=== PATIENT | female | born 1940 | race Caucasian/White ===

== ENCOUNTER 2021-02-16 09:14 | Outpatient (CLI) | payer MEDICARE, SELFPAY ==
--- NOTE | 2021-02-16 | CT_ITS ---
WS: [id number] CT CHEST TECHNIQUE: Contrast enhanced CT of the chest with coronal and sagittal reformatted images. CLINICAL INFORMATION: SHORTNESS OF BREATH COMPARISON: CTA chest 9 15,018 DLP: 973.[address] scans at [facility] use at least one of these dose optimization techniques: automat ed exposure control; mA and/or kV adjustment per patient size (includes targeted exams where dose is matched to clinical indication); or iterative reconstruction. FINDINGS: Moderate chronic emphysematous changes. No acute pulmonary infiltrates. No consolidation or pleural f luid. No focal pneumonia. Calcified granuloma right lower lobe. Noncalcified nodule right lower lobe laterally measuring 4 mm. Normal caliber thoracic aorta. Aortic calcification. Proximal main pulmonar y arteries are normal. No mediastinal or hilar lymphadenopathy. No axillary lymphadenopathy. Adrenal glands are normal. Large esophageal hiatal hernia with partial intrathoracic stomach is simil ar in appearance to 2018. CT/CT chest w con* [id number] IMPRESSION: 1. Small noncalcified nodule right lower lobe laterally measuring 4 mm. Recomm end 12 month follow-up. 2. Moderate chronic emphysematous changes. No acute pulmonary infiltrates. No focal pneumonia or pleural fluid. 3. Large esophageal hiatal hernia with partial intrathoracic stomach similar t o 2018. 4. No mediastinal or hilar lymphadenopathy.
[2021-02-16] MEDS: iohexol 300 mg/mL 100 mL Btl IV (09:55)
== END 2021-02-16 09:15 | disposition home or self-care (01) ==
PROVIDERS: PCP Internal Medicine; Visit Provider Internal Medicine
DX: R06.02 Shortness of breath (principal); R91.1 Solitary pulmonary nodule; K44.9 Diaphragmatic hernia without obstruction or gangrene
CPT/HCPCS: 71260; Q9967

== ENCOUNTER → 2021-03-10 09:29 | Outpatient (BNVA) | payer MEDICARE, SELFPAY | PROVIDERS: PCP Internal Medicine; Visit Provider Internal Medicine | DX: R13.10 Dysphagia, unspecified (principal) | CPT/HCPCS: 87635 ==

== ENCOUNTER 2021-03-15 07:47 | Outpatient (CLI) | payer MEDICARE, SELFPAY ==
--- NOTE | 2021-03-15 14:11 | PFTS_ITS ---
Date of Study:03/15/21 Date of Dictation: 03/18/2021 MECHANICS: Post bronchodilator forced vital capacity (FVC) is reduced. Post bronchodilator forced expiratory volume in one second (FEV1) is moderately reduced 51% FEV1/FVC is reduced. There is no significant response to bronchodilator. FLOW VOLUME LOOP: Sloping of expiratory limb suggestive of airway obstruction. . LUNG VOLUMES: Total lung capacity (TLC) is reduced 70%. Residual volume (RV) is mildly reduced 75% DIFFUSING CAPACITY FOR CARBON MONOXIDE: Mildly reduced 70% . INTERPRETATION: The pulmonary function tests reflect mixed pattern with moderate obstructive pattern on spirometry and a mild restriction on lung volumes. The flow volume loop reflects the same mixed pattern. There is mild gas transfer defect. Correlate clinically. MTDD
== END 2021-03-15 07:48 | disposition home or self-care (01) ==
LOC: RT 07:51
PROVIDERS: PCP Internal Medicine; Visit Provider Internal Medicine
DX: J44.9 Chronic obstructive pulmonary disease, unspecified (principal)
CPT/HCPCS: 94060; 94618; 94726; 94729; J7611

== ENCOUNTER 2021-03-17 08:38 | Day surgery (SDC) | payer MEDICARE, SELFPAY ==
[2021-03-15 15:11] VITALS: BMI 35.3
--- NOTE | 2021-03-17 08:56 | P.ANESASSM_ITS ---
Pre-Anesthetic Assessment Pre-Anesthetic Assessment: Height/Weight: Height 1.5 m Weight 79.379 kg Preop Diagnosis: dysphagia Proposed Procedure: Operation Date: 03/17/21 10:30 Proposed Procedures p EGD Dilation W/ Balloon 95557 R13.10(Not Applicable) - Anjel Walters MD Familial anesthetic complications: None Was Beta [place] taken within 24 hours: N/A Was Clonidine taken within 24 hours: N/A Last intake: NPO > 8 hrs Social: Social History: No alcohol and No tobacco Comment: former smoker Exam: Pre-Anes Outpt Exam: alert, oriented x 3, clear to auscultation bilaterally and regular rate & rhythm Airway: Cervical ROM: WNL MP: 1 Dentition: False Pulmonary: Pulmonary: COPD Comments: now on 2 L NC for a few months CV/HEM: CV/HEM: HTN GI: GI: GERD (occassional) and Hiatus hernia (seen on CT) Comments: Gets food stuck in her esophagus, but states she feels nothing stuck at the moment, no active GERD today Metabolic: Metabolic: Hyperlipidemia Anesthetic Plan: ASA status: 4 Anesthesia: MAC Risk of > 500 ml blood l oss (7ml/kg in children): No PFSH Anesthesia PFSH: Medical History History of breast cancer History of cervical cancer Hyperlipemia Hypertension Surgical History History of colonoscopy [address] Walters History of hysterectomy History of left breast biopsy History of removal of cyst On thyroid. S/P lumpectomy, left breast Family History Denies family history of Anesthesia complication Bleeding disorder Social History (Updated 02/24/21 @ 15:35 by Luiz Meredith LPN) Smoking and tobacco status: former smoker Quit status (tobacco): has quit using tobacco Year quit tobacco: 2000 [id number] Second hand smoke exposure: Yes Smoking risk assessment/counseling performed?: Yes Alcohol intake: current Alcohol intake frequency: holidays/special occasions only Lives independently: Yes Household members: none Housing: House Marital status: / Current occupational status: retired Pets and animals: No History of recent travel: No Current gender identity: Female Data Anesthesia Cardiac Studies: No Data to Display
--- NOTE | 2021-03-17 09:00 | W.PM.OPSUD ---
Surgery/Procedure H&P Update DATE OF PROCEDURE: March 17, 2021 DATE H&P PERFORMED: 02/21/21 H&P UPDATE INFORMATION: I have reviewed H&P completed within last 30 days, I have examined patient prior to procedure and No changes to prior documentation PREOP DIAGNOSIS: dysphagia PLANNED PROCEDURE: Operation Date: 03/17/21 10:30 Proposed Procedures p EGD Dilation W/ Balloon [id number] R13.10(Not Applicable) - Anjel Walters MD
[2021-03-17 09:25] VITALS: BP 146/81; PULSE 77; RESP 18; TEMP 36.3; O2SAT 93
[2021-03-17] MEDS: sodium chloride 0.9% 1,000 ML 30 ML IV (09:48)
[2021-03-17 10:56] VITALS: BP 102/70; PULSE 73; RESP 18; TEMP 36.3; O2SAT 93
[2021-03-17 11:04] VITALS: BP 95/70; PULSE 89; RESP 18; TEMP 36.2; O2SAT 94
--- NOTE | 2021-03-17 11:19 | ANE.PACU2 ---
Inpatient post-anesthesia follow up: Airway intact: Yes Vital signs: Temperature 97.2 F Pulse Rate 89 Respiratory Rate 18 Blood Pressure 95/70 Pulse Oximetry 94 Oxygen Delivery Me thod Room Air Oxygen Flow Rate Fraction of Inspir ed Oxygen Hydration adequate: Yes Mental status: Baseline
== END 2021-03-17 11:28 | disposition home or self-care (01) ==
PROVIDERS: PCP Internal Medicine; Visit Provider Surgery
DX: R13.10 Dysphagia, unspecified (principal); K44.9 Diaphragmatic hernia without obstruction or gangrene; K25.9 Gastric ulcer, unspecified as acute or chronic, without hemorrhage or perforation; K29.80 Duodenitis without bleeding; Z85.3 Personal history of malignant neoplasm of breast; E78.5 Hyperlipidemia, unspecified; I10 Essential (primary) hypertension; Z87.891 Personal history of nicotine dependence
CPT/HCPCS: 43239; 43249; 88305; 96360; J2704; J3490; J7030

== ENCOUNTER 2021-08-04 10:52 | Outpatient (RCR) | payer MEDICARE, SELFPAY | END 2021-08-04 23:59 | disposition home or self-care (01) | LOC: PULRHB 10:52 | PROVIDERS: PCP Internal Medicine; Visit Provider Internal Medicine Pulmonary Disease | DX: J44.9 Chronic obstructive pulmonary disease, unspecified (principal) | CPT/HCPCS: 94618 ==

== ENCOUNTER 2021-08-05 06:00 | Outpatient (RCR) | payer MEDICARE, SELFPAY | END 2021-09-04 23:59 | disposition home or self-care (01) | LOC: PULRHB 06:00 | PROVIDERS: PCP Internal Medicine; Visit Provider Internal Medicine Pulmonary Disease | DX: J44.9 Chronic obstructive pulmonary disease, unspecified (principal) | CPT/HCPCS: G0424 ==

== ENCOUNTER 2021-09-05 06:00 | Outpatient (RCR) | payer MEDICARE, SELFPAY | END 2021-10-04 23:59 | disposition home or self-care (01) | LOC: PULRHB 06:00 | PROVIDERS: PCP Internal Medicine; Visit Provider Internal Medicine Pulmonary Disease | DX: J44.9 Chronic obstructive pulmonary disease, unspecified (principal) | CPT/HCPCS: G0424 ==

== ENCOUNTER 2021-10-05 06:00 | Outpatient (RCR) | payer MEDICARE, SELFPAY | END 2021-11-04 23:59 | disposition home or self-care (01) | LOC: PULRHB 06:00 | PROVIDERS: PCP Internal Medicine; Visit Provider Internal Medicine Pulmonary Disease | DX: J44.9 Chronic obstructive pulmonary disease, unspecified (principal) | CPT/HCPCS: G0424 ==

== ENCOUNTER 2021-11-05 06:00 | Outpatient (RCR) | payer MEDICARE, SELFPAY | END 2021-12-05 23:59 | disposition home or self-care (01) | LOC: PULRHB 06:00 | PROVIDERS: PCP Internal Medicine; Visit Provider Internal Medicine Pulmonary Disease | DX: J44.9 Chronic obstructive pulmonary disease, unspecified (principal) | CPT/HCPCS: G0424 ==

== ENCOUNTER → 2022-04-26 08:29 | Outpatient (BNVA) | payer MEDICARE, SELFPAY | PROVIDERS: PCP Internal Medicine; Visit Provider Internal Medicine Pulmonary Disease | DX: J44.9 Chronic obstructive pulmonary disease, unspecified (principal); R91.1 Solitary pulmonary nodule; K44.9 Diaphragmatic hernia without obstruction or gangrene; Z87.891 Personal history of nicotine dependence; E78.5 Hyperlipidemia, unspecified; I10 Essential (primary) hypertension | CPT/HCPCS: 99214 ==

== ENCOUNTER 2022-07-05 12:29 | Outpatient (CLI) | payer MEDICARE, SELFPAY ==
--- NOTE | 2022-07-05 13:00 | CT_ITS ---
WS: [id number] CT CHEST WITHOUT INTRAVENOUS CONTRAST HISTORY: f/u lung nodule TECHNIQUE: Contiguous 5 mm axial imaging performed on the thorax. Coronal and sagittal reformats are submitted. All CT scans at [facility] use at least one of these dose optimization techniques: automated exposure control; mA and/or kV adjustment per patient size (includes targeted exams where dose is matched to clinical indication); or iterative reconstruction. CONTRAST: None DLP: 622.10 mGy.cm COMPARISON: 02/16/2021 and 07/20/2018 Lungs and central airway: Hyperexpanded lungs with chronic emphysema. No significant change in the 5 mm ovoid nodule periphery of the RIGHT lower lobe. This is a noncalcified nodule. There is a addition al new area of mild spiculation and groundglass attenuation, image 28 of series 4 which will need fol low-up. There is motion artifact present. Pleura: Normal. No pleural effusion. Heart and pericardium: Normal size heart with no pericardial effusion. Mediastinum and jaclyn: No mediastinum or hilar adenopathy. Vessels: Atherosclerosis aorta. Normal size pulmonary artery. Chest wall and lower neck: Stable coarse calcification LEFT breast. Upper abdomen: Very large hiatal hernia. Nearly the entire stomach is intrathoracic. No interval jaquez ge. Osseous structures: Increase in thoracic kyphosis. CT/CT chest wo con [id number] IMPRESSION: 1. No change in the 5 mm ovoid noncalcified nodule RIGHT lower lobe. 2. New area of mild spiculation groundglass attenuation RIGHT lower lobe. Jermaine mmend month noncontrast CT follow-up to reevaluate both RIGHT lower lobe lesion s. 3. Large hiatal hernia. 4. Mild atherosclerosis aorta. 5. Chronic emphysema.
== END 2022-07-05 12:30 | disposition home or self-care (01) ==
PROVIDERS: PCP Internal Medicine; Visit Provider Internal Medicine Pulmonary Disease
DX: R91.1 Solitary pulmonary nodule (principal); K44.9 Diaphragmatic hernia without obstruction or gangrene; I70.0 Atherosclerosis of aorta; J43.9 Emphysema, unspecified
CPT/HCPCS: 71250

== ENCOUNTER 2022-10-09 11:54 | Outpatient (CLI) | payer MEDICARE, SELFPAY ==
--- NOTE | 2022-10-09 13:00 | CT_ITS ---
WS: [id number] CT CHEST WITHOUT INTRAVENOUS CONTRAST HISTORY: 3 month f/u lung nodule TECHNIQUE: Contiguous 5 mm axial imaging performed on the thorax. Coronal and sagittal reformats are submitted. All CT scans at [facility] use at least one of these dose optimization techniques: automated exposure control; mA and/or kV adjustment per patient size (includes targeted exams where dose is matched to clinical indication); or iterative reconstruction. CONTRAST: None DLP: 606.79 mGy.cm COMPARISON: 07/05/2022 Lungs and central airway: There has been a significant adverse change in appearance of the lungs sinc e the prior study. New, numerous bilateral patchy opacifications. Greatest involvement of the RIGHT l richy. Multifocal irregular shaped opacifications in the medial RIGHT upper lobe with additional dense opacification along the major fissure abutting the RIGHT upper lobe. There are smaller scattered bila teral lower lobe opacifications. No change in the 5 mm ovoid nodule in the RIGHT lower lobe. Focal ar ea of groundglass attenuation in the posterior RIGHT lower lobe is also stable. There is a small nodu le measuring about 5 mm in the LEFT lower lobe that was probably present on the prior study but lucina r seen today. Pleura: Normal. No pleural effusion. Heart and pericardium: Mild cardiomegaly. Mediastinum and jaclyn: No mediastinal widening. Small but numerous mediastinal and hilar lymph nodes. Large esophageal hernia. Greater than 50% of the stomach is in the thorax. Vessels: Atherosclerosis aorta. Chest wall and lower neck: No soft tissue masses. Upper abdomen: Scattered hepatic granulomata. Visualized gallbladder is negative. No adrenal mass. Osseous structures: Increase in thoracic kyphosis. CT/CT chest wo con [id number] IMPRESSION: 1. Numerous, bilateral new pulmonary opacifications and consolidations since . Greater distribution throughout the RIGHT lung. The distribution and configuration suggests this may be inflammatory. Consider aspiration pneumonia as a possible etiology as there is a very large hiatal hernia which could be re sulting in aspiration. 2. No significant change in the 5 mm RIGHT lower lobe nodule or groundglass at tenuation since 07/05/2022. Recommend continued imaging surveillance is these fi ndings are new since 02/16/2021. Continued chest CT follow-up in 3-4 months. 3. Chronic emphysema.
== END 2022-10-09 11:55 | disposition home or self-care (01) ==
LOC: RAD 11:56
PROVIDERS: PCP Internal Medicine; Visit Provider Internal Medicine Pulmonary Disease
DX: R91.1 Solitary pulmonary nodule (principal)
CPT/HCPCS: 71250

== ENCOUNTER → 2022-10-26 09:19 | Outpatient (BNVA) | payer MEDICARE, SELFPAY | PROVIDERS: PCP Internal Medicine; Visit Provider Internal Medicine Pulmonary Disease | DX: R91.1 Solitary pulmonary nodule (principal); J44.9 Chronic obstructive pulmonary disease, unspecified; K44.9 Diaphragmatic hernia without obstruction or gangrene; Z87.891 Personal history of nicotine dependence | CPT/HCPCS: 99214 ==

== ENCOUNTER 2023-02-06 09:14 | Outpatient (CLI) | payer MEDICARE, SELFPAY ==
--- NOTE | 2023-02-06 09:30 | CT_ITS ---
WS: [id number] CT chest wo con [id number] HISTORY: PULMONARY NODULE FOLLOW UP TECHNIQUE: Axial imaging performed through the thorax. Coronal and sagittal reformats are submitted. All CT scans at [facility] use at least one of these dose optimization techniques: automated exposure control; mA and/or kV adjustment per patient size (includes targeted exams where dose is mat ched to clinical indication); or iterative reconstruction. CONTRAST: None DLP: 314.43 mGy.cm COMPARISON: 02/16/2021, 10/09/2022 Lungs and central airway: Chronic centrilobular emphysema. 5 mm noncalcified nodule in the RIGHT midd le lobe is reidentified with no change. Stable since 02/16/2021. There are additional scattered nodule s which are also stable. There are a few scattered areas of groundglass attenuation. No new or enlarg ing nodules. The opacifications which were new on the prior study have improved. There is one groundg lass residual nodules in the RIGHT lower lobe best seen on image 31 of series 4 which is unchanged. Pleura: Normal. No pleural effusion. Heart and pericardium: Normal size heart with no pericardial effusion. Mediastinum and jaclyn: No mediastinum or hilar adenopathy. Large hiatal hernia. Vessels: Moderate atherosclerosis aorta. Normal size pulmonary artery. Chest wall and lower neck: No soft tissue masses. Upper abdomen: Negative. Osseous structures: No destructive process. CT/CT chest wo con [id number] IMPRESSION: 1. Long-term stability RIGHT lower lobe 5 mm pulmonary nodule. Stable since . No additional imaging follow-up necessary due to long-term stability o f 2 years. 2. There are a few additional nodules which are also stable. 3. Improvement in the bilateral opacifications described on 10/09/2022. 4. Large hiatal hernia.
== END 2023-02-06 09:15 | disposition home or self-care (01) ==
PROVIDERS: PCP Internal Medicine; Visit Provider Internal Medicine Pulmonary Disease
DX: R91.1 Solitary pulmonary nodule (principal); K44.9 Diaphragmatic hernia without obstruction or gangrene
CPT/HCPCS: 71250

== ENCOUNTER → 2023-02-26 09:05 | Outpatient (BNVA) | payer MEDICARE, SELFPAY | PROVIDERS: PCP Internal Medicine; Visit Provider Internal Medicine Pulmonary Disease | DX: J44.9 Chronic obstructive pulmonary disease, unspecified (principal); R91.1 Solitary pulmonary nodule; K44.9 Diaphragmatic hernia without obstruction or gangrene; Z87.891 Personal history of nicotine dependence; R60.9 Edema, unspecified; Z91.89 Other specified personal risk factors, not elsewhere classified | CPT/HCPCS: 99214 ==

== ENCOUNTER 2023-07-25 08:40 | Outpatient (CLI) | payer MEDICARE, SELFPAY ==
--- NOTE | 2023-07-25 08:58 | XR_ITS ---
WS: [id number] XR lumbar spine 2-3V* [id number] REASON FOR EXAM: ACUTE BACK PAIN FINDINGS: Mild rotatory scoliosis convex left. Relatively normal lordosis. No mild biconcave compression deformities L1-L3. No vertebral body lesion. Mild to moderate narrowing of the L5-S1 disc space. Remaining disc spaces are intact and relatively well preserved. No significant listhesis. Moderate degenerative arthropathy in the facet joints L3-S1. IMPRESSION: Mild compression deformities L1-L3 of unknown chronicity. Mild to moderate degenerative spondylosis for age.
== END 2023-07-25 08:41 | disposition home or self-care (01) ==
PROVIDERS: PCP Internal Medicine; Visit Provider Internal Medicine
DX: M47.896 Other spondylosis, lumbar region (principal)
CPT/HCPCS: 72100

== ENCOUNTER → 2023-08-27 09:13 | Outpatient (BNVA) | payer MEDICARE, SELFPAY | PROVIDERS: PCP Internal Medicine; Visit Provider Internal Medicine Pulmonary Disease | DX: J44.9 Chronic obstructive pulmonary disease, unspecified (principal); R91.1 Solitary pulmonary nodule; K44.9 Diaphragmatic hernia without obstruction or gangrene; Z99.81 Dependence on supplemental oxygen; Z91.89 Other specified personal risk factors, not elsewhere classified; Z87.891 Personal history of nicotine dependence | CPT/HCPCS: 99214 ==

== ENCOUNTER 2023-10-05 06:00 | Outpatient (RCR) | payer MEDICARE, SELFPAY | END 2023-11-04 23:59 | disposition home or self-care (01) | LOC: PULRHB 06:00 | PROVIDERS: PCP Internal Medicine; Visit Provider Internal Medicine Pulmonary Disease | DX: J44.9 Chronic obstructive pulmonary disease, unspecified (principal) | CPT/HCPCS: 94625 ==

== ENCOUNTER 2023-11-05 06:00 | Outpatient (RCR) | payer MEDICARE, SELFPAY | END 2023-12-05 23:59 | disposition home or self-care (01) | LOC: PULRHB 06:00 | PROVIDERS: PCP Internal Medicine; Visit Provider Internal Medicine Pulmonary Disease | DX: J44.9 Chronic obstructive pulmonary disease, unspecified (principal) | CPT/HCPCS: 94625 ==

== ENCOUNTER 2023-12-06 06:00 | Outpatient (RCR) | payer MEDICARE, SELFPAY | END 2024-01-03 23:59 | disposition home or self-care (01) | LOC: PULRHB 06:00 | PROVIDERS: PCP Internal Medicine; Visit Provider Internal Medicine Pulmonary Disease | DX: J44.9 Chronic obstructive pulmonary disease, unspecified (principal) | CPT/HCPCS: 94625 ==

== ENCOUNTER → 2024-03-17 10:36 | Outpatient (BNVA) | payer MEDICARE, SELFPAY | PROVIDERS: PCP Internal Medicine; Visit Provider Internal Medicine Pulmonary Disease | DX: J44.9 Chronic obstructive pulmonary disease, unspecified (principal); R91.1 Solitary pulmonary nodule; K44.9 Diaphragmatic hernia without obstruction or gangrene; Z87.891 Personal history of nicotine dependence | CPT/HCPCS: 99214 ==

== ENCOUNTER 2024-05-05 14:33 | Outpatient (RCR) | payer SELFPAY | END 2024-06-04 23:59 | disposition home or self-care (01) | LOC: PULRHB 14:33 | PROVIDERS: PCP Internal Medicine; Referring Provider Internal Medicine Pulmonary Disease; Visit Provider Internal Medicine Pulmonary Disease | DX: J44.9 Chronic obstructive pulmonary disease, unspecified (principal) ==

== ENCOUNTER 2024-06-18 13:27 | Outpatient (RCR) | payer SELFPAY | END 2024-07-05 23:59 | disposition home or self-care (01) | LOC: PULRHB 13:27 | PROVIDERS: PCP Internal Medicine; Referring Provider Internal Medicine Pulmonary Disease; Visit Provider Internal Medicine Pulmonary Disease | DX: J44.9 Chronic obstructive pulmonary disease, unspecified (principal) ==

== ENCOUNTER 2024-07-07 08:26 | Outpatient (RCR) | payer SELFPAY | END 2024-08-04 23:59 | disposition home or self-care (01) | LOC: PULRHB 08:26 | PROVIDERS: PCP Internal Medicine; Referring Provider Internal Medicine Pulmonary Disease; Visit Provider Internal Medicine Pulmonary Disease | DX: J44.9 Chronic obstructive pulmonary disease, unspecified (principal) ==

== ENCOUNTER 2024-07-11 14:17 | Outpatient (CLI) | payer MEDICARE, SELFPAY ==
--- NOTE | 2024-07-11 14:20 | XR_ITS ---
WS: [id number] DEXA (DUAL ENERGY X-RAY ABSORPTIOMETRY) Bone mineral density was performed using a [place] machine. HISTORY: OSTEOPOROSIS COMPARISON: None available. Lumbar spine BMD (L1-L4): 1.058 g/cm2 T score: -1.0 Z score: 0.4 Total hip BMD: Left: 0.869 g/cm2. T score: -1.1 Z score: 0.7 Right: 0.895 g/cm2. T score: -0.9 Z score: 0.9 10 year probability of a major osteoporotic fracture is 17.6%. XR/XR DEXA axial skeleton* [id number] IMPRESSION: OSTEOPENIA based upon the WHO classification for females.
== END 2024-07-11 14:18 | disposition home or self-care (01) ==
LOC: RAD 14:17
PROVIDERS: PCP Internal Medicine; Visit Provider Internal Medicine
DX: M81.0 Age-related osteoporosis without current pathological fracture (principal); M85.80 Other specified disorders of bone density and structure, unspecified site
CPT/HCPCS: 77080

== ENCOUNTER 2024-08-05 11:23 | Outpatient (RCR) | payer SELFPAY | END 2024-09-04 23:59 | disposition home or self-care (01) | LOC: PULRHB 11:23 | PROVIDERS: PCP Internal Medicine; Referring Provider Internal Medicine Pulmonary Disease; Visit Provider Internal Medicine Pulmonary Disease | DX: J44.9 Chronic obstructive pulmonary disease, unspecified (principal) ==

== ENCOUNTER 2024-09-05 14:20 | Outpatient (RCR) | payer SELFPAY | END 2024-10-04 23:59 | disposition home or self-care (01) | LOC: PULRHB 14:20 | PROVIDERS: PCP Internal Medicine; Referring Provider Internal Medicine Pulmonary Disease; Visit Provider Internal Medicine Pulmonary Disease | DX: J44.9 Chronic obstructive pulmonary disease, unspecified (principal) | CPT/HCPCS: 93798 ==

== ENCOUNTER 2024-10-08 08:02 | Outpatient (RCR) | payer SELFPAY | END 2024-11-04 23:59 | disposition home or self-care (01) | LOC: PULRHB 08:02 | PROVIDERS: PCP Internal Medicine; Referring Provider Internal Medicine Pulmonary Disease; Visit Provider Internal Medicine Pulmonary Disease | DX: J44.9 Chronic obstructive pulmonary disease, unspecified (principal) ==

== ENCOUNTER 2024-11-05 10:49 | Outpatient (RCR) | payer SELFPAY | END 2024-12-05 23:59 | disposition home or self-care (01) | LOC: PULRHB 10:49 | PROVIDERS: PCP Internal Medicine; Referring Provider Internal Medicine Pulmonary Disease; Visit Provider Internal Medicine Pulmonary Disease | DX: J44.9 Chronic obstructive pulmonary disease, unspecified (principal) ==

== ENCOUNTER 2024-12-08 15:53 | Outpatient (RCR) | payer SELFPAY | END 2025-01-02 23:59 | disposition home or self-care (01) | LOC: PULRHB 15:53 | PROVIDERS: PCP Internal Medicine; Referring Provider Internal Medicine Pulmonary Disease; Visit Provider Internal Medicine Pulmonary Disease | DX: J44.9 Chronic obstructive pulmonary disease, unspecified (principal) ==

== ENCOUNTER 2025-01-06 12:59 | Outpatient (RCR) | payer SELFPAY | END 2025-02-02 23:59 | disposition home or self-care (01) | LOC: PULRHB 12:59 | PROVIDERS: PCP Internal Medicine; Referring Provider Internal Medicine Pulmonary Disease; Visit Provider Internal Medicine Pulmonary Disease | DX: J44.9 Chronic obstructive pulmonary disease, unspecified (principal) ==

== ENCOUNTER 2025-02-04 09:26 | Outpatient (RCR) | payer SELFPAY | END 2025-03-04 23:59 | disposition home or self-care (01) | LOC: PULRHB 09:26 | PROVIDERS: PCP Internal Medicine; Referring Provider Internal Medicine Pulmonary Disease; Visit Provider Internal Medicine Pulmonary Disease | DX: J44.9 Chronic obstructive pulmonary disease, unspecified (principal) | CPT/HCPCS: 93798 ==

== ENCOUNTER 2025-03-05 13:20 | Outpatient (RCR) | payer SELFPAY | END 2025-04-04 23:59 | disposition home or self-care (01) | LOC: PULRHB 13:20 | PROVIDERS: PCP Internal Medicine; Referring Provider Internal Medicine Pulmonary Disease; Visit Provider Internal Medicine Pulmonary Disease | DX: J44.9 Chronic obstructive pulmonary disease, unspecified (principal) ==

== ENCOUNTER 2025-03-26 08:30 | Oncology outpatient (recurring) (ONCR) | payer MEDICARE, SELFPAY ==
[2025-03-20] MEDS: iron sucrose 300 MG in sodium chloride 0.9% (100 ml) 100 ML 200 MG IV (08:15)
[2025-03-20 08:24] VITALS: BP 132/77; PULSE 90; RESP 17; TEMP 36.7; O2SAT 97
[2025-03-20 09:19] VITALS: BP 109/67; PULSE 79; RESP 16; TEMP 36.8; O2SAT 95
[2025-03-26] MEDS: iron sucrose 300 MG in sodium chloride 0.9% (100 ml) 100 ML 220 MG IV (08:16)
[2025-03-26 09:28] VITALS: BP 104/66; PULSE 81; RESP 17; TEMP 36.4; O2SAT 17
== END 2025-04-04 23:59 | disposition home or self-care (01) ==
PROVIDERS: PCP Internal Medicine; Visit Provider Internal Medicine
DX: Z53.9 Procedure and treatment not carried out, unspecified reason (principal); D50.9 Iron deficiency anemia, unspecified; Z79.899 Other long term (current) drug therapy
CPT/HCPCS: 96365; J1756

== ENCOUNTER 2025-04-08 07:36 | Outpatient (RCR) | payer SELFPAY | END 2025-05-04 23:59 | disposition home or self-care (01) | LOC: PULRHB 07:36 | PROVIDERS: PCP Internal Medicine; Referring Provider Internal Medicine Pulmonary Disease; Visit Provider Internal Medicine Pulmonary Disease | DX: J44.9 Chronic obstructive pulmonary disease, unspecified (principal) ==

== ENCOUNTER 2025-05-05 10:58 | Outpatient (RCR) | payer SELFPAY | END 2025-06-04 23:59 | disposition home or self-care (01) | LOC: PULRHB 10:58 | PROVIDERS: PCP Internal Medicine; Referring Provider Internal Medicine Pulmonary Disease; Visit Provider Internal Medicine Pulmonary Disease | DX: J44.9 Chronic obstructive pulmonary disease, unspecified (principal) ==

== ENCOUNTER 2025-06-05 13:06 | Outpatient (RCR) | payer SELFPAY | END 2025-07-05 23:59 | disposition home or self-care (01) | LOC: PULRHB 13:06 | PROVIDERS: PCP Internal Medicine; Referring Provider Internal Medicine Pulmonary Disease; Visit Provider Internal Medicine Pulmonary Disease | DX: J44.9 Chronic obstructive pulmonary disease, unspecified (principal) ==

== ENCOUNTER 2025-07-07 13:25 | Outpatient (RCR) | payer SELFPAY | END 2025-08-04 23:59 | disposition home or self-care (01) | LOC: PULRHB 13:25 | PROVIDERS: PCP Internal Medicine; Referring Provider Internal Medicine Pulmonary Disease; Visit Provider Internal Medicine Pulmonary Disease | DX: J44.9 Chronic obstructive pulmonary disease, unspecified (principal) ==

== ENCOUNTER 2025-08-05 10:47 | Outpatient (RCR) | payer SELFPAY | END 2025-09-04 23:59 | disposition home or self-care (01) | LOC: PULRHB 10:47 | PROVIDERS: PCP Internal Medicine; Referring Provider Internal Medicine Pulmonary Disease; Visit Provider Internal Medicine Pulmonary Disease | DX: J44.9 Chronic obstructive pulmonary disease, unspecified (principal) ==

== ENCOUNTER 2025-09-05 13:13 | Outpatient (RCR) | payer SELFPAY | END 2025-10-04 23:59 | disposition home or self-care (01) | LOC: PULRHB 13:13 | PROVIDERS: PCP Internal Medicine; Referring Provider Internal Medicine Pulmonary Disease; Visit Provider Internal Medicine Pulmonary Disease | DX: J44.9 Chronic obstructive pulmonary disease, unspecified (principal) ==

== ENCOUNTER 2025-10-05 12:15 | Outpatient (RCR) | payer SELFPAY | END 2025-11-04 23:59 | disposition home or self-care (01) | LOC: PULRHB 12:15 | PROVIDERS: PCP Internal Medicine; Referring Provider Internal Medicine Pulmonary Disease; Visit Provider Internal Medicine Pulmonary Disease | DX: J44.9 Chronic obstructive pulmonary disease, unspecified (principal) ==